=== PATIENT | male | born 1950 | race Caucasian/White ===

== ENCOUNTER 2019-02-05 21:45 | Inpatient (IN) | payer MEDICARE, MEDICAID ==
[~2019-02-05] VITALS: Ht 180.3 cm; Wt 80.6 kg
[~2019-02-05 21:45] MED LIST: BENZ1TAB10 PO; CEPH500 PO; DIVA-78 PO; OLAN10TA3 PO; RISP2 PO
[2019-02-05] MEDS ORDERED: HALOPERIDOL 5 MG TABLET PO PRN (22:15)
[2019-02-05] MEDS ORDERED: ZOLPIDEM TARTRATE 10 MG TABLET PO PRN (22:15)
[2019-02-05 22:31] VITALS: BP 112/69
[2019-02-06] MEDS: RisperiDONE 2 MG TABLET PO SCH ×2 (09:42→17:03)
[2019-02-06] MEDS: OLANZapine 10 MG TABLET PO SCH ×2 (09:44→20:16)
[2019-02-06] MEDS: BENZTROPINE MESYLATE 1 MG TABLET PO SCH ×2 (09:44→17:03)
[2019-02-06 09:54] VITALS: BP 90/57
[2019-02-06] MEDS ORDERED: DOCUSATE SODIUM 100 MG CAPSULE PO PRN (14:15)
[2019-02-06] MEDS ORDERED: MAG HYDROX/AL HYDROX/SIMETH ES 30 ML SUSPENSION UDCUP PO PRN (14:15)
[2019-02-06] MEDS ORDERED: GuaiFENesin/D-METHORPHAN [SUGAR-FREE] 200-20MG/10 ML SYRUP UDCUP PO PRN (14:15)
[2019-02-06] MEDS ORDERED: NICOTINE 14 MG/24 HOUR PATCH TD PRN (14:15)
[2019-02-06] MEDS ORDERED: ACETAMINOPHEN 325 MG TABLET PO PRN (14:15)
[2019-02-06] MEDS ORDERED: LOPERAMIDE HCL 2 MG CAPSULE PO PRN (14:15)
[2019-02-06] MEDS ORDERED: ALBUTEROL SULFATE HFA 90 MCG/PUFF 8 GM INHALER IH PRN (14:15)
[2019-02-06] MEDS ORDERED: PETROLATUM,WHITE 28 GM JELLY TP PRN (14:15)
[2019-02-06] MEDS ORDERED: ONDANSETRON HCL 4 MG TABLET PO PRN (14:15)
[2019-02-06] MEDS ORDERED: MAGNESIUM HYDROXIDE SUSPENSION 30 ML UDCUP PO PRN (14:15)
[2019-02-06] MEDS ORDERED: CloNIDine HCL 0.1 MG TABLET PO PRN (14:15)
[2019-02-06 16:01] VITALS: BP 118/67
[2019-02-06] MEDS: CEPHALEXIN MONOHYDRATE 500 MG CAPSULE PO SCH (17:03)
[2019-02-06] MEDS: DIVALPROEX SODIUM 500 MG DR TABLET PO SCH (20:15)
[2019-02-07] MEDS: BENZTROPINE MESYLATE 1 MG TABLET PO SCH ×2 (08:49→16:03)
[2019-02-07] MEDS: OLANZapine 10 MG TABLET PO SCH ×2 (08:49→20:19)
[2019-02-07] MEDS: RisperiDONE 2 MG TABLET PO SCH ×2 (08:49→16:03)
[2019-02-07] MEDS: CEPHALEXIN MONOHYDRATE 500 MG CAPSULE PO SCH ×3 (08:53→16:11)
[2019-02-07 09:45] VITALS: BP 122/80
[2019-02-07 17:00] VITALS: BP 128/76
[2019-02-07] MEDS: DIVALPROEX SODIUM 500 MG DR TABLET PO SCH (20:19)
[2019-02-08 05:42] VITALS: BP 119/70
[2019-02-08] MEDS: RisperiDONE 2 MG TABLET PO SCH ×2 (08:16→16:43)
[2019-02-08] MEDS: OLANZapine 10 MG TABLET PO SCH ×2 (08:16→20:33)
[2019-02-08] MEDS: BENZTROPINE MESYLATE 1 MG TABLET PO SCH ×2 (08:16→16:43)
[2019-02-08] MEDS: CEPHALEXIN MONOHYDRATE 500 MG CAPSULE PO SCH ×3 (08:16→16:44)
[2019-02-08 09:00] VITALS: BP 90/66
[2019-02-08] MEDS: FERROUS SULFATE 325 MG EC TABLET PO SCH (16:44)
[2019-02-08 17:02] VITALS: BP 119/66
[2019-02-08] MEDS: DIVALPROEX SODIUM 500 MG DR TABLET PO SCH (20:33)
[2019-02-09 02:57] VITALS: BP 114/72
[2019-02-09] MEDS: FERROUS SULFATE 325 MG EC TABLET PO SCH ×2 (07:27→17:47)
[2019-02-09] MEDS: RisperiDONE 2 MG TABLET PO SCH ×2 (08:33→16:10)
[2019-02-09] MEDS: CEPHALEXIN MONOHYDRATE 500 MG CAPSULE PO SCH ×3 (08:33→16:10)
[2019-02-09] MEDS: BENZTROPINE MESYLATE 1 MG TABLET PO SCH ×2 (08:33→16:10)
[2019-02-09] MEDS: OLANZapine 10 MG TABLET PO SCH ×2 (08:33→20:14)
[2019-02-09 09:12] VITALS: BP 135/81
[2019-02-09 19:23] VITALS: BP 156/63
[2019-02-09] MEDS: DIVALPROEX SODIUM 500 MG DR TABLET PO SCH (20:14)
[2019-02-10] MEDS: FERROUS SULFATE 325 MG EC TABLET PO SCH ×2 (06:44→17:10)
[2019-02-10] MEDS: BENZTROPINE MESYLATE 1 MG TABLET PO SCH ×2 (09:07→17:10)
[2019-02-10] MEDS: CEPHALEXIN MONOHYDRATE 500 MG CAPSULE PO SCH ×3 (09:07→17:10)
[2019-02-10] MEDS: RisperiDONE 2 MG TABLET PO SCH ×2 (09:07→17:10)
[2019-02-10] MEDS: OLANZapine 10 MG TABLET PO SCH ×2 (09:07→20:55)
[2019-02-10 09:13] VITALS: BP 114/83
[2019-02-10] MEDS: IBUPROFEN 400 MG TABLET PO PRN (18:18)
[2019-02-10 19:18] VITALS: BP 125/83
[2019-02-10 20:10] VITALS: BP 120/85
[2019-02-10] MEDS: DIVALPROEX SODIUM 500 MG DR TABLET PO SCH (20:55)
[2019-02-11 01:19] VITALS: BP 108/67
[2019-02-11] MEDS: IBUPROFEN 400 MG TABLET PO PRN ×2 (04:55→16:14)
[2019-02-11] MEDS: FERROUS SULFATE 325 MG EC TABLET PO SCH ×2 (06:54→16:14)
[2019-02-11] MEDS: RisperiDONE 2 MG TABLET PO SCH ×2 (08:16→16:14)
[2019-02-11] MEDS: CEPHALEXIN MONOHYDRATE 500 MG CAPSULE PO SCH ×3 (08:16→16:14)
[2019-02-11] MEDS: OLANZapine 10 MG TABLET PO SCH ×2 (08:16→20:54)
[2019-02-11] MEDS: BENZTROPINE MESYLATE 1 MG TABLET PO SCH ×2 (08:16→16:14)
[2019-02-11 08:40] VITALS: BP 126/68
[2019-02-11 16:14] VITALS: BP_SYST 100; BP_SYST 102; BP_DIAS 64
[2019-02-11] MEDS: DIVALPROEX SODIUM 500 MG DR TABLET PO SCH (20:54)
[2019-02-12] MEDS: FERROUS SULFATE 325 MG EC TABLET PO SCH ×2 (06:58→17:30)
[2019-02-12 08:05] VITALS: BP 117/81
[2019-02-12] MEDS: BENZTROPINE MESYLATE 1 MG TABLET PO SCH ×2 (08:08→16:11)
[2019-02-12] MEDS: IBUPROFEN 400 MG TABLET PO PRN ×2 (08:08→16:11)
[2019-02-12] MEDS: RisperiDONE 2 MG TABLET PO SCH ×2 (08:08→16:11)
[2019-02-12] MEDS: CEPHALEXIN MONOHYDRATE 500 MG CAPSULE PO SCH ×3 (08:08→16:11)
[2019-02-12] MEDS: OLANZapine 10 MG TABLET PO SCH ×2 (08:08→20:21)
[2019-02-12 16:08] VITALS: BP 121/79
[2019-02-12] MEDS: DIVALPROEX SODIUM 500 MG DR TABLET PO SCH (20:22)
[2019-02-13] MEDS: FERROUS SULFATE 325 MG EC TABLET PO SCH ×2 (06:47→17:19)
[2019-02-13 07:32] LABS: ANION GAP 6 mmol/L (8-16); CALCIUM, TOTAL 9.4 mg/dL (8.8-10.5); CARBON DIOXIDE 26 mmol/L (22-29); CHLORIDE 106 mmol/L (98-107); CREATININE 1.03 mg/dL (0.60-1.30); GLOMERULAR FILTR. RATE CALC > 60 mL/min (>60); GLUCOSE,RANDOM 110 mg/dL (70-110); PHOSPHORUS 3.9 mg/dL (2.5-4.9); POTASSIUM 5.2 mmol/L (3.5-5.1); SODIUM SERUM 138 mmol/L (136-145); UREA NITROGEN, BLOOD 31 mg/dL (7-18)
[2019-02-13 08:17] VITALS: BP 130/69
[2019-02-13] MEDS: RisperiDONE 2 MG TABLET PO SCH ×2 (09:21→17:19)
[2019-02-13] MEDS: BENZTROPINE MESYLATE 1 MG TABLET PO SCH ×2 (09:21→17:19)
[2019-02-13] MEDS: CEPHALEXIN MONOHYDRATE 500 MG CAPSULE PO SCH ×3 (09:21→17:19)
[2019-02-13] MEDS: OLANZapine 10 MG TABLET PO SCH ×2 (09:21→20:14)
[2019-02-13] MEDS: IBUPROFEN 400 MG TABLET PO PRN (09:22)
[2019-02-13] MEDS ORDERED: SODIUM POLYSTYRENE SULFONATE 15 GM/60 ML SUSPENSION BOTTLE PO ONE (16:15)
[2019-02-13 18:54] VITALS: BP 129/87
[2019-02-13] MEDS: DIVALPROEX SODIUM 500 MG DR TABLET PO SCH (20:07)
[2019-02-14 01:07] VITALS: BP 99/77
[2019-02-14] MEDS: FERROUS SULFATE 325 MG EC TABLET PO SCH ×2 (06:58→16:31)
[2019-02-14] MEDS: IBUPROFEN 400 MG TABLET PO PRN (06:59)
[2019-02-14 07:01] VITALS: BP 136/84
[2019-02-14] MEDS: OLANZapine 10 MG TABLET PO SCH ×2 (09:22→21:17)
[2019-02-14] MEDS: RisperiDONE 2 MG TABLET PO SCH ×2 (09:22→16:30)
[2019-02-14] MEDS: BENZTROPINE MESYLATE 1 MG TABLET PO SCH ×2 (09:22→16:30)
[2019-02-14] MEDS: CEPHALEXIN MONOHYDRATE 500 MG CAPSULE PO SCH ×3 (09:22→16:30)
[2019-02-14 10:23] VITALS: BP 135/94
[2019-02-14] MEDS: LORazepam 2 MG TABLET PO PRN (16:34)
[2019-02-14 17:00] VITALS: BP 137/70
[2019-02-14] MEDS: DIVALPROEX SODIUM 500 MG DR TABLET PO SCH (21:17)
[2019-02-15] MEDS: FERROUS SULFATE 325 MG EC TABLET PO SCH ×2 (07:32→18:30)
[2019-02-15 08:30] VITALS: BP 116/73
[2019-02-15] MEDS: LORazepam 2 MG TABLET PO PRN (09:03)
[2019-02-15] MEDS: RisperiDONE 2 MG TABLET PO SCH ×2 (09:03→16:13)
[2019-02-15] MEDS: BENZTROPINE MESYLATE 1 MG TABLET PO SCH ×2 (09:03→16:13)
[2019-02-15] MEDS: IBUPROFEN 400 MG TABLET PO PRN (09:03)
[2019-02-15] MEDS: CEPHALEXIN MONOHYDRATE 500 MG CAPSULE PO SCH ×3 (09:03→16:13)
[2019-02-15] MEDS: OLANZapine 10 MG TABLET PO SCH ×2 (09:04→20:55)
[2019-02-15 17:25] VITALS: BP 113/61
[2019-02-15] MEDS: DIVALPROEX SODIUM 500 MG DR TABLET PO SCH (20:55)
[2019-02-16 02:35] VITALS: BP 139/72
[2019-02-16] MEDS: FERROUS SULFATE 325 MG EC TABLET PO SCH ×2 (07:12→16:40)
[2019-02-16] MEDS: CEPHALEXIN MONOHYDRATE 500 MG CAPSULE PO SCH ×3 (09:26→16:40)
[2019-02-16] MEDS: OLANZapine 10 MG TABLET PO SCH ×2 (09:26→20:21)
[2019-02-16 09:27] VITALS: BP 131/70
[2019-02-16] MEDS: BENZTROPINE MESYLATE 1 MG TABLET PO SCH ×2 (09:27→16:40)
[2019-02-16] MEDS: RisperiDONE 2 MG TABLET PO SCH ×2 (09:27→16:40)
[2019-02-16 19:47] VITALS: BP 108/76
[2019-02-16] MEDS: DIVALPROEX SODIUM 500 MG DR TABLET PO SCH (20:21)
[2019-02-17 02:49] VITALS: BP 115/57
[2019-02-17] MEDS: FERROUS SULFATE 325 MG EC TABLET PO SCH ×2 (06:42→16:54)
[2019-02-17] MEDS: BENZTROPINE MESYLATE 1 MG TABLET PO SCH ×2 (08:29→16:54)
[2019-02-17] MEDS: OLANZapine 10 MG TABLET PO SCH ×2 (08:29→20:15)
[2019-02-17] MEDS: RisperiDONE 2 MG TABLET PO SCH ×2 (08:29→16:54)
[2019-02-17 10:01] VITALS: BP 106/67
[2019-02-17 16:00] VITALS: BP_SYST 119; BP_SYST 145; BP_DIAS 70; BP_DIAS 76
[2019-02-17] MEDS: DIVALPROEX SODIUM 500 MG DR TABLET PO SCH (20:15)
[2019-02-18 05:05] VITALS: BP 109/72
[2019-02-18] MEDS: FERROUS SULFATE 325 MG EC TABLET PO SCH ×2 (07:04→18:04)
[2019-02-18 08:00] VITALS: BP 114/72
[2019-02-18] MEDS: RisperiDONE 2 MG TABLET PO SCH ×2 (08:24→16:38)
[2019-02-18] MEDS: OLANZapine 10 MG TABLET PO SCH ×2 (08:24→20:28)
[2019-02-18] MEDS: BENZTROPINE MESYLATE 1 MG TABLET PO SCH ×2 (08:24→16:38)
[2019-02-18 09:58] VITALS: BP 114/72
[2019-02-18 16:19] VITALS: BP 106/76
[2019-02-18] MEDS: DIVALPROEX SODIUM 500 MG DR TABLET PO SCH (20:28)
[2019-02-19 06:09] VITALS: BP 145/75
[2019-02-19] MEDS: FERROUS SULFATE 325 MG EC TABLET PO SCH ×2 (07:05→16:29)
[2019-02-19 08:00] VITALS: BP 121/78
[2019-02-19] MEDS: OLANZapine 10 MG TABLET PO SCH ×2 (09:21→20:06)
[2019-02-19] MEDS: BENZTROPINE MESYLATE 1 MG TABLET PO SCH ×2 (09:21→16:29)
[2019-02-19] MEDS: RisperiDONE 2 MG TABLET PO SCH ×2 (09:21→16:29)
[2019-02-19] MEDS ORDERED: DIVA250T45 PO (14:15)
[2019-02-19 16:00] VITALS: BP 124/70
[2019-02-19] MEDS: DIVALPROEX SODIUM 500 MG DR TABLET PO SCH (20:06)
[2019-02-20 00:07] VITALS: BP 115/55
[2019-02-20] MEDS: FERROUS SULFATE 325 MG EC TABLET PO SCH ×2 (06:52→18:51)
[2019-02-20] MEDS: RisperiDONE 2 MG TABLET PO SCH ×2 (08:10→16:20)
[2019-02-20] MEDS: BENZTROPINE MESYLATE 1 MG TABLET PO SCH ×2 (08:10→16:21)
[2019-02-20] MEDS: OLANZapine 10 MG TABLET PO SCH ×2 (08:10→20:08)
[2019-02-20 08:58] VITALS: BP 104/55
[2019-02-20 09:00] VITALS: BP 104/55
[2019-02-20 16:45] VITALS: BP 141/73
[2019-02-20] MEDS: DIVALPROEX SODIUM 500 MG DR TABLET PO SCH (20:11)
[2019-02-21 04:47] VITALS: BP 113/74
[2019-02-21] MEDS: FERROUS SULFATE 325 MG EC TABLET PO SCH (06:48)
[2019-02-21] MEDS: RisperiDONE 2 MG TABLET PO SCH (08:05)
[2019-02-21] MEDS: BENZTROPINE MESYLATE 1 MG TABLET PO SCH (08:06)
[2019-02-21] MEDS: OLANZapine 10 MG TABLET PO SCH (08:06)
[2019-02-21 08:17] VITALS: BP 116/80
[2019-02-21] MEDS ORDERED: FERR-89 PO (11:23)
[2019-02-21] MEDS: IBUPROFEN 400 MG TABLET PO PRN (13:45)
== END 2019-02-21 15:35 | disposition home or self-care (01) | DRG 885 ==
LOC: 3EX 21:45
PROVIDERS: ADMIT Psychiatry & Neurology Psychiatry; ATTEND Psychiatry & Neurology Psychiatry
DX: F20.0 Paranoid schizophrenia (principal); D64.9 Anemia, unspecified; E87.5 Hyperkalemia; R10.13 Epigastric pain; Z86.72 Personal history of thrombophlebitis
CPT/HCPCS: 83735; 84100; 84132; G0378

== ENCOUNTER 2019-10-21 15:26 | Inpatient (IN) | payer MEDICARE, MEDICAID ==
[~2019-10-21] VITALS: Ht 175.3 cm; Wt 84.4 kg
[~2019-10-21 15:26] MED LIST changes: -CEPH500 PO; +FERR-89 PO; -RISP2 PO; +RISP2TAB23 PO
[2019-10-21 17:41] LABS: BASOPHILS % (AUTO) 0.8 % (0.0-2.0); EOSINOPHILS % (AUTO) 3.1 % (1.0-6.0); HEMATOCRIT 41.4 % (41-53); HEMOGLOBIN 13.7 g/dL (13.5-17.5); LYMPHOCYTES # (AUTO) 2.7 K/uL (1.0-4.8); LYMPHOCYTES % (AUTO) 29.6 % (22.0-44.0); MEAN CORPUSCULAR HEMOGLOBIN 31.5 pg (26.0-34.0); MEAN CORPUSCULAR HGB CONC 33.2 G/dL (31.0-37.0); MEAN CORPUSCULAR VOLUME 95 fL (80-100); MONOCYTES % (AUTO) 10.5 % (2.0-9.0); NEUTROPHILS # (AUTO) 5.1 K/uL (1.8-7.7); PLATELET COUNT (AUTO) 171 K/uL (150-450); RED BLOOD CELL COUNT(AUTO) 4.36 MIL/uL (4.50-5.90); RED CELL DISTRIBUTION WIDTH 14.1 % (11.5-14.5)
[2019-10-21 17:52] LABS: ANION GAP 9 mmol/L (8-16); CALCIUM, TOTAL 9.4 mg/dL (8.8-10.5); CARBON DIOXIDE 25 mmol/L (22-29); CHLORIDE 110 mmol/L (98-107); CREATININE 0.89 mg/dL (0.60-1.30); GLOMERULAR FILTR. RATE CALC > 60 mL/min (>60); GLUCOSE,RANDOM 108 mg/dL (70-110); POTASSIUM 4.3 mmol/L (3.5-5.1); SODIUM SERUM 144 mmol/L (136-145); UREA NITROGEN, BLOOD 33 mg/dL (7-18)
[2019-10-21 17:58] LABS: ALANINE AMINOTRANSFERASE 20 U/L (12-78); ALBUMIN 3.5 g/dL (3.4-5.0); ALKALINE PHOSPHATASE 42 U/L (46-116); ASPARTATE AMINOTRANSFERASE 15 U/L (15-37); BILIRUBIN,TOTAL 0.3 mg/dL (0.1-1.0); TOTAL PROTEIN, SERUM 6.6 g/dL (6.4-8.2)
[2019-10-21 18:19] LABS: THYROID STIMULATING HORMONE 1.26 uIU/mL (0.36-3.74)
[2019-10-21] MEDS ORDERED: ZOLPIDEM TARTRATE 10 MG TABLET PO PRN (20:00)
[2019-10-21 21:57] VITALS: BP 134/73
[2019-10-21] MEDS ORDERED: -PHARMACY VACCINE NOTE- MISC ONE (22:15)
[2019-10-22 08:47] LABS: CHOL/HDL RATIO 2.8 (4.2-7.3)
[2019-10-22 08:50] VITALS: BP 101/49
[2019-10-22] MEDS: NICOTINE 21 MG/24 HOUR PATCH TD SCH (09:19)
[2019-10-22] MEDS ORDERED: PETROLATUM,WHITE 28 GM JELLY TP PRN (10:00)
[2019-10-22] MEDS ORDERED: ALBUTEROL SULFATE HFA 90 MCG/PUFF 8 GM INHALER IH PRN (10:00)
[2019-10-22] MEDS ORDERED: MAGNESIUM HYDROXIDE SUSPENSION 30 ML UDCUP PO PRN (10:00)
[2019-10-22] MEDS ORDERED: IBUPROFEN 400 MG TABLET PO PRN (10:00)
[2019-10-22] MEDS ORDERED: ONDANSETRON HCL 4 MG TABLET PO PRN (10:00)
[2019-10-22] MEDS ORDERED: CloNIDine HCL 0.1 MG TABLET PO PRN (10:00)
[2019-10-22] MEDS ORDERED: MAG HYDROX/AL HYDROX/SIMETH ES 30 ML SUSPENSION UDCUP PO PRN (10:00)
[2019-10-22] MEDS ORDERED: LOPERAMIDE HCL 2 MG CAPSULE PO PRN (10:00)
[2019-10-22] MEDS ORDERED: ACETAMINOPHEN 325 MG TABLET PO PRN (10:00)
[2019-10-22] MEDS ORDERED: GuaiFENesin/D-METHORPHAN [SUGAR-FREE] 200-20MG/10 ML SYRUP UDCUP PO PRN (10:00)
[2019-10-22] MEDS ORDERED: DOCUSATE SODIUM 100 MG CAPSULE PO PRN (10:00)
[2019-10-22] MEDS: OLANZapine 10 MG TABLET PO SCH ×2 (13:45→20:15)
[2019-10-22] MEDS: BENZTROPINE MESYLATE 1 MG TABLET PO SCH ×2 (13:45→20:15)
[2019-10-22 17:15] VITALS: BP 142/79
[2019-10-22] MEDS: FERROUS SULFATE 325 MG EC TABLET PO SCH (17:47)
[2019-10-22] MEDS: DIVALPROEX SODIUM 500 MG DR TABLET PO SCH (20:15)
[2019-10-22 20:17] VITALS: BP 139/74
[2019-10-23 06:31] VITALS: BP 111/69
[2019-10-23] MEDS: FERROUS SULFATE 325 MG EC TABLET PO SCH ×2 (06:58→16:37)
[2019-10-23] MEDS: OLANZapine 10 MG TABLET PO SCH ×2 (08:09→20:16)
[2019-10-23] MEDS: BENZTROPINE MESYLATE 1 MG TABLET PO SCH ×2 (08:09→20:16)
[2019-10-23] MEDS: NICOTINE 14 MG/24 HOUR PATCH TD PRN ×3 (08:11→08:14)
[2019-10-23 08:26] VITALS: BP 126/67
[2019-10-23] MEDS: NICOTINE 21 MG/24 HOUR PATCH TD SCH (08:45)
[2019-10-23] MEDS: LORazepam 2 MG TABLET PO PRN (16:37)
[2019-10-23] MEDS: QUEtiapine FUMARATE 100 MG TABLET PO PRN (16:37)
[2019-10-23 19:19] VITALS: BP 107/70
[2019-10-23] MEDS: DIVALPROEX SODIUM 500 MG DR TABLET PO SCH (20:16)
[2019-10-24] MEDS: FERROUS SULFATE 325 MG EC TABLET PO SCH ×2 (06:54→16:16)
[2019-10-24] MEDS: BENZTROPINE MESYLATE 1 MG TABLET PO SCH ×2 (08:36→20:22)
[2019-10-24] MEDS: OLANZapine 10 MG TABLET PO SCH ×2 (08:36→20:21)
[2019-10-24] MEDS: NICOTINE 21 MG/24 HOUR PATCH TD SCH (08:39)
[2019-10-24 12:59] VITALS: BP 114/81
[2019-10-24 18:09] VITALS: BP 113/76
[2019-10-24] MEDS: DIVALPROEX SODIUM 500 MG DR TABLET PO SCH (20:21)
[2019-10-25 04:45] VITALS: BP 117/72
[2019-10-25] MEDS: FERROUS SULFATE 325 MG EC TABLET PO SCH ×2 (07:06→17:06)
[2019-10-25] MEDS: BENZTROPINE MESYLATE 1 MG TABLET PO SCH ×2 (08:11→20:01)
[2019-10-25] MEDS: OLANZapine 10 MG TABLET PO SCH ×2 (08:11→20:02)
[2019-10-25] MEDS: NICOTINE 21 MG/24 HOUR PATCH TD SCH (08:11)
[2019-10-25 09:40] VITALS: BP 126/88
[2019-10-25 19:31] VITALS: BP 122/84
[2019-10-25] MEDS: DIVALPROEX SODIUM 500 MG DR TABLET PO SCH (20:01)
[2019-10-26] MEDS: FERROUS SULFATE 325 MG EC TABLET PO SCH ×2 (06:56→16:26)
[2019-10-26] MEDS: BENZTROPINE MESYLATE 1 MG TABLET PO SCH ×2 (07:59→20:48)
[2019-10-26] MEDS: OLANZapine 10 MG TABLET PO SCH ×2 (07:59→20:48)
[2019-10-26] MEDS: NICOTINE 21 MG/24 HOUR PATCH TD SCH (08:00)
[2019-10-26 09:26] VITALS: BP 127/75
[2019-10-26 16:57] VITALS: BP 130/76
[2019-10-26] MEDS: DIVALPROEX SODIUM 500 MG DR TABLET PO SCH (20:48)
[2019-10-27] MEDS: FERROUS SULFATE 325 MG EC TABLET PO SCH ×2 (06:44→16:42)
[2019-10-27] MEDS: BENZTROPINE MESYLATE 1 MG TABLET PO SCH ×2 (08:21→20:49)
[2019-10-27] MEDS: OLANZapine 10 MG TABLET PO SCH ×2 (08:21→20:49)
[2019-10-27] MEDS: NICOTINE 21 MG/24 HOUR PATCH TD SCH (08:22)
[2019-10-27 09:46] VITALS: BP 121/72
[2019-10-27 17:25] VITALS: BP 122/67
[2019-10-27] MEDS: DIVALPROEX SODIUM 500 MG DR TABLET PO SCH (20:49)
[2019-10-28 00:13] VITALS: BP 113/79
[2019-10-28] MEDS: FERROUS SULFATE 325 MG EC TABLET PO SCH ×2 (06:45→17:38)
[2019-10-28] MEDS: BENZTROPINE MESYLATE 1 MG TABLET PO SCH ×2 (08:04→20:33)
[2019-10-28] MEDS: NICOTINE 21 MG/24 HOUR PATCH TD SCH (08:05)
[2019-10-28] MEDS: OLANZapine 10 MG TABLET PO SCH (08:06)
[2019-10-28 09:00] VITALS: BP 144/74
[2019-10-28 16:00] VITALS: BP 119/67
[2019-10-28] MEDS: OLANZapine 7.5 MG TABLET PO SCH (20:34)
[2019-10-28] MEDS: DIVALPROEX SODIUM 500 MG DR TABLET PO SCH (20:34)
[2019-10-29 02:29] VITALS: BP 112/75
[2019-10-29] MEDS: FERROUS SULFATE 325 MG EC TABLET PO SCH ×2 (06:31→16:50)
[2019-10-29] MEDS: BENZTROPINE MESYLATE 1 MG TABLET PO SCH ×2 (08:17→20:32)
[2019-10-29] MEDS: OLANZapine 10 MG TABLET PO SCH (08:18)
[2019-10-29] MEDS: NICOTINE 21 MG/24 HOUR PATCH TD SCH (08:18)
[2019-10-29 09:06] VITALS: BP 123/77
[2019-10-29 19:24] VITALS: BP 136/76
[2019-10-29] MEDS: DIVALPROEX SODIUM 500 MG DR TABLET PO SCH (20:32)
[2019-10-29] MEDS: OLANZapine 7.5 MG TABLET PO SCH (20:33)
[2019-10-30 01:12] VITALS: BP 98/65
[2019-10-30] MEDS: FERROUS SULFATE 325 MG EC TABLET PO SCH ×2 (07:08→16:36)
[2019-10-30] MEDS: NICOTINE 21 MG/24 HOUR PATCH TD SCH (08:24)
[2019-10-30] MEDS: OLANZapine 10 MG TABLET PO SCH (08:24)
[2019-10-30] MEDS: BENZTROPINE MESYLATE 1 MG TABLET PO SCH ×2 (08:24→20:16)
[2019-10-30 10:16] VITALS: BP 92/72
[2019-10-30 17:09] VITALS: BP 111/72
[2019-10-30] MEDS: OLANZapine 7.5 MG TABLET PO SCH (20:16)
[2019-10-30] MEDS: DIVALPROEX SODIUM 500 MG DR TABLET PO SCH (20:17)
[2019-10-31 03:28] VITALS: BP 102/72
[2019-10-31] MEDS: FERROUS SULFATE 325 MG EC TABLET PO SCH ×2 (06:37→18:47)
[2019-10-31] MEDS: NICOTINE 21 MG/24 HOUR PATCH TD SCH (08:42)
[2019-10-31] MEDS: OLANZapine 10 MG TABLET PO SCH (08:42)
[2019-10-31] MEDS: BENZTROPINE MESYLATE 1 MG TABLET PO SCH ×2 (08:42→21:00)
[2019-10-31 08:45] VITALS: BP 118/59
[2019-10-31] MEDS: LORazepam 2 MG TABLET PO PRN (16:25)
[2019-10-31 17:01] VITALS: BP 104/80
[2019-10-31] MEDS: OLANZapine 7.5 MG TABLET PO SCH (21:00)
[2019-10-31] MEDS: DIVALPROEX SODIUM 500 MG DR TABLET PO SCH (21:00)
[2019-11-01 03:52] VITALS: BP 106/70
[2019-11-01] MEDS: FERROUS SULFATE 325 MG EC TABLET PO SCH ×2 (06:44→16:05)
[2019-11-01 08:00] VITALS: BP 101/70
[2019-11-01] MEDS: OLANZapine 10 MG TABLET PO SCH (08:20)
[2019-11-01] MEDS: NICOTINE 21 MG/24 HOUR PATCH TD SCH (08:20)
[2019-11-01] MEDS: BENZTROPINE MESYLATE 1 MG TABLET PO SCH ×2 (08:20→20:08)
[2019-11-01 16:16] VITALS: BP 119/74
[2019-11-01] MEDS: OLANZapine 7.5 MG TABLET PO SCH (20:08)
[2019-11-01] MEDS: DIVALPROEX SODIUM 500 MG DR TABLET PO SCH (20:08)
[2019-11-01] MEDS: QUEtiapine FUMARATE 100 MG TABLET PO PRN (21:43)
[2019-11-01] MEDS: LORazepam 2 MG TABLET PO PRN (21:43)
[2019-11-02 05:58] VITALS: BP 105/66
[2019-11-02] MEDS: FERROUS SULFATE 325 MG EC TABLET PO SCH ×2 (06:32→16:36)
[2019-11-02] MEDS: OLANZapine 10 MG TABLET PO SCH (08:55)
[2019-11-02] MEDS: NICOTINE 21 MG/24 HOUR PATCH TD SCH (08:55)
[2019-11-02] MEDS: BENZTROPINE MESYLATE 1 MG TABLET PO SCH ×2 (08:55→20:23)
[2019-11-02 09:47] VITALS: BP 110/69
[2019-11-02 16:50] VITALS: BP 118/62
[2019-11-02] MEDS: DIVALPROEX SODIUM 500 MG DR TABLET PO SCH (20:23)
[2019-11-02] MEDS: OLANZapine 7.5 MG TABLET PO SCH (20:23)
[2019-11-03 00:37] VITALS: BP 106/69
[2019-11-03] MEDS: FERROUS SULFATE 325 MG EC TABLET PO SCH ×2 (06:55→16:45)
[2019-11-03] MEDS: OLANZapine 10 MG TABLET PO SCH (08:19)
[2019-11-03] MEDS: BENZTROPINE MESYLATE 1 MG TABLET PO SCH ×2 (08:19→20:44)
[2019-11-03] MEDS: NICOTINE 21 MG/24 HOUR PATCH TD SCH (08:28)
[2019-11-03 08:33] VITALS: BP 115/73
[2019-11-03 16:34] VITALS: BP 151/81
[2019-11-03] MEDS: OLANZapine 7.5 MG TABLET PO SCH (20:44)
[2019-11-03] MEDS: DIVALPROEX SODIUM 500 MG DR TABLET PO SCH (20:44)
[2019-11-04 03:30] VITALS: BP 104/63
[2019-11-04] MEDS: FERROUS SULFATE 325 MG EC TABLET PO SCH ×2 (06:48→16:39)
[2019-11-04] MEDS: NICOTINE 21 MG/24 HOUR PATCH TD SCH (08:13)
[2019-11-04] MEDS: BENZTROPINE MESYLATE 1 MG TABLET PO SCH ×2 (08:13→20:07)
[2019-11-04] MEDS: OLANZapine 10 MG TABLET PO SCH (08:14)
[2019-11-04 09:11] VITALS: BP 123/72
[2019-11-04 17:00] VITALS: BP 119/71
[2019-11-04] MEDS: DIVALPROEX SODIUM 500 MG DR TABLET PO SCH (20:07)
[2019-11-04] MEDS: OLANZapine 7.5 MG TABLET PO SCH (20:07)
[2019-11-05 02:15] VITALS: BP 105/57
[2019-11-05] MEDS: FERROUS SULFATE 325 MG EC TABLET PO SCH ×2 (06:35→16:51)
[2019-11-05 08:00] VITALS: BP 113/66
[2019-11-05] MEDS: NICOTINE 21 MG/24 HOUR PATCH TD SCH (08:14)
[2019-11-05] MEDS: OLANZapine 10 MG TABLET PO SCH (08:15)
[2019-11-05] MEDS: BENZTROPINE MESYLATE 1 MG TABLET PO SCH ×2 (08:15→20:22)
[2019-11-05 17:01] VITALS: BP 116/64
[2019-11-05] MEDS: OLANZapine 7.5 MG TABLET PO SCH (20:22)
[2019-11-05] MEDS: DIVALPROEX SODIUM 500 MG DR TABLET PO SCH (20:22)
[2019-11-06 01:22] VITALS: BP 101/66
[2019-11-06] MEDS: FERROUS SULFATE 325 MG EC TABLET PO SCH ×2 (06:44→16:34)
[2019-11-06] MEDS: BENZTROPINE MESYLATE 1 MG TABLET PO SCH ×2 (08:02→20:09)
[2019-11-06] MEDS: NICOTINE 21 MG/24 HOUR PATCH TD SCH (08:02)
[2019-11-06] MEDS: OLANZapine 10 MG TABLET PO SCH (08:02)
[2019-11-06 09:09] VITALS: BP 149/76
[2019-11-06 16:00] VITALS: BP 131/82
[2019-11-06] MEDS: QUEtiapine FUMARATE 100 MG TABLET PO PRN (17:15)
[2019-11-06] MEDS: DIVALPROEX SODIUM 500 MG DR TABLET PO SCH (20:09)
[2019-11-06] MEDS: OLANZapine 7.5 MG TABLET PO SCH (20:09)
[2019-11-07] MEDS: FERROUS SULFATE 325 MG EC TABLET PO SCH (06:57)
[2019-11-07 08:00] VITALS: BP 122/79
[2019-11-07] MEDS: OLANZapine 10 MG TABLET PO SCH (08:38)
[2019-11-07] MEDS: BENZTROPINE MESYLATE 1 MG TABLET PO SCH (08:38)
[2019-11-07] MEDS: NICOTINE 21 MG/24 HOUR PATCH TD SCH (08:38)
[2019-11-07] MEDS ORDERED: DIVA-78 PO (11:32)
[2019-11-07] MEDS ORDERED: BENZ1TAB10 PO (11:32)
[2019-11-07] MEDS ORDERED: OLAN10TA20 PO (11:32)
[2019-11-07] MEDS ORDERED: OLAN7.5T9 PO (11:32)
== END 2019-11-07 14:00 | disposition home or self-care (01) | DRG 885 ==
LOC: EMS 15:26 → 3EX 21:25
DX: F25.1 Schizoaffective disorder, depressive type (principal); F10.10 Alcohol abuse, uncomplicated; I83.90 Asymptomatic varicose veins of unspecified lower extremity; F99 Mental disorder, not otherwise specified; F19.10 Other psychoactive substance abuse, uncomplicated; R73.03 Prediabetes; Z79.899 Other long term (current) drug therapy; F12.90 Cannabis use, unspecified, uncomplicated; F41.9 Anxiety disorder, unspecified; G47.00 Insomnia, unspecified; I95.9 Hypotension, unspecified; Y90.9 Presence of alcohol in blood, level not specified
CPT/HCPCS: 70450; 83036; 84443; G0378; G0480

== ENCOUNTER 2019-11-11 01:01 | Emergency (ER) | payer MEDICARE, MEDICAID ==
[~2019-11-11] VITALS: Ht 182.9 cm; Wt 86.4 kg
[~2019-11-11 01:01] MED LIST changes: +OLAN10TA20 PO; -OLAN10TA3 PO; +OLAN7.5T9 PO; -RISP2TAB23 PO
[2019-11-11 03:18] LABS: BASOPHILS % (AUTO) 0.7 % (0.0-2.0); EOSINOPHILS % (AUTO) 1.6 % (1.0-6.0); HEMATOCRIT 37.7 % (41-53); LYMPHOCYTES # (AUTO) 1.5 K/uL (1.0-4.8); LYMPHOCYTES % (AUTO) 18.5 % (22.0-44.0); MEAN CORPUSCULAR HEMOGLOBIN 32.7 pg (26.0-34.0); MEAN CORPUSCULAR HGB CONC 34.6 G/dL (31.0-37.0); MEAN CORPUSCULAR VOLUME 95 fL (80-100); MONOCYTES # (AUTO) 0.7 K/uL (0.1-1.0); MONOCYTES % (AUTO) 8.2 % (2.0-9.0); NEUTROPHILS # (AUTO) 5.6 K/uL (1.8-7.7); PLATELET COUNT (AUTO) 192 K/uL (150-450); RED BLOOD CELL COUNT(AUTO) 3.98 MIL/uL (4.50-5.90); RED CELL DISTRIBUTION WIDTH 14.6 % (11.5-14.5)
[2019-11-11 03:34] LABS: ANION GAP 7 mmol/L (8-16); CALCIUM, TOTAL 8.6 mg/dL (8.8-10.5); CARBON DIOXIDE 25 mmol/L (22-29); CHLORIDE 106 mmol/L (98-107); CREATININE 0.92 mg/dL (0.60-1.30); GLOMERULAR FILTR. RATE CALC > 60 mL/min (>60); GLUCOSE,RANDOM 116 mg/dL (70-110); POTASSIUM 4.3 mmol/L (3.5-5.1); SODIUM SERUM 138 mmol/L (136-145); UREA NITROGEN, BLOOD 14 mg/dL (7-18)
[2019-11-11 03:40] LABS: ALANINE AMINOTRANSFERASE 28 U/L (12-78); ALBUMIN 3.4 g/dL (3.4-5.0); ALKALINE PHOSPHATASE 43 U/L (46-116); ASPARTATE AMINOTRANSFERASE 18 U/L (15-37); BILIRUBIN,TOTAL 0.5 mg/dL (0.1-1.0); TOTAL PROTEIN, SERUM 6.6 g/dL (6.4-8.2); VALPROIC ACID 15 mcg/mL (50-100)
[2019-11-11 04:24] LABS: AMPHET/METH SCREEN,URINE NEGATIVE (NEGATIVE); BARBITURATE SCREEN, URINE NEGATIVE (NEGATIVE); BENZODIAZEPINES SCREEN,URINE NEGATIVE (NEGATIVE); CANNABINOID SCREEN,URINE NEGATIVE (NEGATIVE); COCAINE SCREEN,URINE NEGATIVE (NEGATIVE); METHADONE SCREEN, URINE NEGATIVE (NEGATIVE); OPIATE SCREEN,URINE NEGATIVE (NEGATIVE); PHENCYCLIDINE SCREEN,URINE NEGATIVE (NEGATIVE)
[2019-11-11 05:41] LABS: APPEARANCE,URINE CLEAR (CLEAR); BILIRUBIN,URINE NEGATIVE (NEGATIVE); GLUCOSE, URINE (UA) NEGATIVE (NEGATIVE); KETONES,URINE NEGATIVE (NEGATIVE); LEUKOCYTE ESTERASE ,URINE NEGATIVE (NEGATIVE); NITRATE,URINE NEGATIVE (NEGATIVE); OCCULT BLOOD,URINE NEGATIVE (NEGATIVE); PROTEIN,URINE NEGATIVE (NEGATIVE); UROBILINOGEN,URINE 0.2 mg/dL (<=1.0)
[2019-11-11] MEDS ORDERED: LORazepam 2 MG/ML VIAL ONE (08:33)
[2019-11-11 08:50] VITALS: BP 137/71
== END 2019-11-11 09:30 | disposition home or self-care (01) ==
LOC: EMS 01:01
DX: F22 Delusional disorders (principal); R45.851 Suicidal ideations; F17.210 Nicotine dependence, cigarettes, uncomplicated; F41.9 Anxiety disorder, unspecified; F20.9 Schizophrenia, unspecified; I10 Essential (primary) hypertension
CPT/HCPCS: 36415; 80053; 80164; 80307; 81003; 85025; 99284; 99406; G0480; J2060